=== PATIENT | female | born 1980 | race Two or more races ===

== ENCOUNTER 2021-03-09 07:03 | Day surgery (SDC) | payer OTHER ==
[2021-03-09] MEDS ORDERED: PERCOCET 5-3251 EACH PO (11:10)
== END 2021-03-09 12:40 | disposition home or self-care (01) ==
LOC: CIR.AMB 07:03
PROVIDERS: ATTEND Surgery
DX: E04.1 Nontoxic single thyroid nodule (principal); Z20.822 Contact with and (suspected) exposure to COVID-19